=== PATIENT | female | born 1950 | race Caucasian/White ===

== ENCOUNTER → 2018-03-21 | Outpatient (CLI) | payer MEDICARE | END | disposition home or self-care (01) | LOC: CFH 10:02 | PROVIDERS: ATTEND Family Medicine | DX: S43.61XA Sprain of right sternoclavicular joint, initial encounter (principal); M19.011 Primary osteoarthritis, right shoulder; N95.8 Other specified menopausal and perimenopausal disorders; X58.XXXA Exposure to other specified factors, initial encounter; Y93.89 Activity, other specified; Y92.89 Other specified places as the place of occurrence of the external cause; Y99.8 Other external cause status | CPT/HCPCS: 71130; 77080 ==

== ENCOUNTER 2018-04-08 10:34 | Day surgery (SDC) | payer MEDICARE ==
[~2018-04-08] VITALS: Ht 165.1 cm; Wt 58.2 kg
[2018-04-08] MEDS ORDERED: LIDOCAINE-MPF 1%, 5ML ONE ×2 (10:56→10:59)
[2018-04-08 11:04] VITALS: BP 120/76
== END 2018-04-08 12:04 | disposition home or self-care (01) ==
LOC: CACL 10:34
PROVIDERS: ATTEND Internal Medicine Cardiovascular Disease
DX: I48.0 Paroxysmal atrial fibrillation (principal); Z45.09 Encounter for adjustment and management of other cardiac device; Z98.890 Other specified postprocedural states; Z88.1 Allergy status to other antibiotic agents; Z79.01 Long term (current) use of anticoagulants; Z95.2 Presence of prosthetic heart valve
CPT/HCPCS: 33286

== ENCOUNTER 2018-06-22 20:51 | Emergency (ER) | payer MEDICARE ==
[~2018-06-22] VITALS: Ht 165.1 cm; Wt 62.0 kg
[2018-06-22] MEDS ORDERED: xarelto (21:23)
--- NOTE | 2018-06-22 21:27 | NUR ---
pt had syncopal episode epsiode while on the phone with son, who called 911, pt was drinking wine tonight
[2018-06-22] MEDS ORDERED: SODIUM CHLORIDE FLUSH 10ML SYR IVF ONE (21:30)
[2018-06-22 21:59] LABS: BASOPHILS # (AUTO) 0.03 x10^3/uL (0-0.1); BASOPHILS % (AUTO) 1 % (0-1); EOSINOPHILS # (AUTO) 0.03 x10^3/uL (0-0.4); EOSINOPHILS % (AUTO) 1 % (1-7); LYMPHOCYTES % (AUTO) 20 % (22-44); MD NO; MEAN CORPUSCULAR HEMOGLOBIN 33.2 pg (27.0-34.8); MEAN CORPUSCULAR HGB CONC 34.8 g/dL (32.4-35.8); MEAN CORPUSCULAR VOLUME 95.4 fL (80-100); MEAN PLATELET VOLUME 7.8 fL (7.4-10.4); MONOCYTES # (AUTO) 0.28 x10^3/uL (0.2-0.8); MONOCYTES % (AUTO) 5 % (2-9); NEUTROPHILS # (AUTO) 4.55 x10^3/uL (1.8-6.8); NEUTROPHILS % (AUTO) 75 % (42-75); PLATELET COUNT 197 x10^3/uL (130-400); RED BLOOD COUNT 3.95 x10^6/uL (3.82-5.3); RED CELL DISTRIBUTION WIDTH 12.7 % (9.6-15.2)
--- NOTE | 2018-06-22 21:59 | NUR ---
c collar removed per order
[2018-06-22 22:09] LABS: INTERNATIONAL NORMALIZED RATIO 1.15 (0.93-1.1)
[2018-06-22 22:11] LABS: ALANINE AMINOTRANSFERASE 22 U/L (12-78); ALBUMIN 3.8 g/dL (3.4-5.0); ANION GAP 9 mmol/L (5-15); CALCIUM 7.9 mg/dL (8.5-10.1); CHLORIDE 111 mmol/L (98-107)
[2018-06-22 22:16] LABS: ALKALINE PHOSPHATASE 74 U/L (45-117); BILIRUBIN,TOTAL 0.3 mg/dL (0.2-1.0); CREATININE 0.64 mg/dL (0.55-1.02); TOTAL PROTEIN 6.7 g/dL (6.4-8.2); TROPONIN I < 0.015 ng/mL (0.000-0.045)
--- NOTE | 2018-06-22 22:35 | NUR ---
pt ambulated to br without difficulty
[2018-06-22 22:45] VITALS: BP 115/76
--- NOTE | 2018-06-22 23:57 | NUR ---
Patient/Caregiver given discharge instructions and they have confirmed that they understand the instructions. Patient ambulatory with steady gait.
== END 2018-06-22 23:58 | disposition home or self-care (01) ==
LOC: ED 21:22
DX: S00.33XA Contusion of nose, initial encounter (principal); R55 Syncope and collapse; F10.120 Alcohol abuse with intoxication, uncomplicated; I48.91 Unspecified atrial fibrillation; Z95.2 Presence of prosthetic heart valve; X58.XXXA Exposure to other specified factors, initial encounter; Y93.89 Activity, other specified; Y92.89 Other specified places as the place of occurrence of the external cause; Y99.8 Other external cause status
CPT/HCPCS: 36415; 70450; 70486; 72125; 80053; 80307; 84484; 85025; 85610; 85730; 93005; 99284

== ENCOUNTER → 2019-05-12 | Outpatient (CLI) | payer MEDICARE ==
[~2019-05-12] MED LIST: xarelto
== END | disposition home or self-care (01) ==
LOC: CFH 09:58
PROVIDERS: ATTEND Family Medicine
DX: Z12.31 Encounter for screening mammogram for malignant neoplasm of breast (principal)
CPT/HCPCS: 77063; 77067

== ENCOUNTER → 2019-05-12 | Outpatient (CLI) | payer MEDICARE | END | disposition home or self-care (01) | LOC: CFH 14:16 | PROVIDERS: ATTEND Family Medicine | DX: Z12.31 Encounter for screening mammogram for malignant neoplasm of breast (principal) | CPT/HCPCS: 76641 ==

== ENCOUNTER → 2020-05-02 | Outpatient (CLI) | payer MEDICARE | END | disposition home or self-care (01) | LOC: CFH 10:13 | PROVIDERS: ATTEND Family Medicine | DX: R92.2 Inconclusive mammogram (principal); N64.4 Mastodynia; Z78.0 Asymptomatic menopausal state | CPT/HCPCS: 77062; 77080; 77066; G0279 ==